=== PATIENT | male | born 1985 ===

== ENCOUNTER 2018-01-31 22:11 | Emergency (ER) | payer OTHER ==
[~2018-01-31] VITALS: Ht 162.6 cm; Wt 63.5 kg
[2018-01-31] MEDS ORDERED: Naprosyn500 MG PO (23:13)
== END 2018-01-31 23:28 | disposition home or self-care (01) ==
LOC: ER 22:11
DX: M54.5 Low back pain (principal); F17.200 Nicotine dependence, unspecified, uncomplicated
CPT/HCPCS: 99283; J1885

== ENCOUNTER 2018-02-01 02:09 | Emergency (ER) | payer OTHER ==
[~2018-02-01] VITALS: Ht 162.6 cm; Wt 63.5 kg
[~2018-02-01 02:09] MED LIST: Naprosyn500 MG PO
== END 2018-02-01 02:49 | disposition home or self-care (01) ==
LOC: ER 02:09
DX: R45.1 Restlessness and agitation (principal); Z59.0 Homelessness; F17.200 Nicotine dependence, unspecified, uncomplicated
CPT/HCPCS: 99284